=== PATIENT | female | born 1995 | race Two or more races ===

== ENCOUNTER 2016-07-19 22:40 | Emergency (ER) | payer SELFPAY ==
[~2016-07-19] VITALS: Ht 157.5 cm; Wt 45.4 kg
[2016-07-19 22:51] VITALS: BP 109/53
[2016-07-19] MEDS ORDERED: AMOX1TAB61 PO (23:14)
--- NOTE | 2016-07-19 23:15 | PHYS DOC ---
Past Medical History Past Medical History: No Pertinent History Past Surgical History: No Surgical History Additional Information: nonsmoker Alcohol Use: None Drug Use: None Adult General Chief Complaint Chief Complaint: ANIMAL BITE HPI HPI Patient is a 21 year old female who presents with dog bite to the left upper lip at 2200 tonight. The dog belongs to the patient's brother. The patient was bending down to give the dog a kiss and did not realize that the dog was eating at the time. The dog bit her. Her tetanus immunization is not up to date. She does not have a PCP. Review of Systems Review of Systems Constitutional: Denies fever or chills. [] Eyes: Denies change in visual acuity, redness, or eye pain. [] Musculoskeletal: Denies back pain or joint pain. [] Integument: Denies rash or skin lesions. Reports left upper lip laceration. Neurologic: Denies headache, focal weakness or sensory changes. [] Current Medications Current Medications Current Medications Medications (Trade) Dose Ordered Sig/Leticia Start Time Stop Time Status Last Admin Dose Admin Diphtheria/ Tetanus/Acell Pertussis (Boostrix) 0.5 ml ONCE ONCE 07/19/16 23:30 07/19/16 23:31 DC 07/19/16 23:30 0.5 ML Lidocaine/ Epinephrine (Xylocaine 1%-Epi 1:100,000) 20 ml 1X ONCE 07/19/16 23:30 07/19/16 23:31 DC 07/19/16 23:28 20 ML Allergies Allergies Allergies Coded Allergies Type Severity Reaction Last Updated Verified No Known Drug Allergies 07/19/16 No Physical Exam Physical Exam Constitutional: Well developed, well nourished, no acute distress, non-toxic appearance. [] HENT: Normocephalic, atraumatic, bilateral external ears normal, oropharynx moist, no oral exudates, nose normal. There is a 1cm laceration of the left upper lip through the jazmin border. It does not go [id number] the lip. Eyes: PERRLA, EOMI, conjunctiva normal, no discharge. [] Skin: Warm, dry, no erythema, no rash. There is a 1cm laceration of the left upper lip. Neurologic: Alert and oriented X 3, normal motor function, normal sensory function, no focal deficits noted. [] Psychologic: Affect normal, judgement normal, mood normal. [] Current Patient Data Vital Signs Vital Signs Date Time Temp Pulse Resp B/P Pulse Ox O2 Delivery O2 Flow Rate FiO2 07/19/16 22:51 99.0 83 18 98 Room Air 99.0 EKG EKG [] Radiology/Procedures Radiology/Procedures [] Course & Med Decision Making Course & Med Decision Making Pertinent Labs and Imaging studies reviewed. (See chart for details) Patient presents with a 1 cm laceration to the left upper lip. The wound was anesthetized with 1% lidocaine with epinephrine. The wound was explored for foreign bodies and none were identified. The wound was cleaned using chlorhexidine scrub and copiously irrigated using normal saline. Wound edges were well approximated using 2 simple interrupted sutures using 6-0 nylon. There was good alignment of the jazmin border. The patient tolerated the procedure well and bleeding was controlled. Dragon Disclaimer Dragon Disclaimer This electronic medical record was generated, in whole or in part, using a voice recognition dictation system. Departure Departure Impression: Primary Impression: Dog bite of vermilion of upper lip Disposition: 01 HOME, SELF-CARE Condition: STABLE Referrals: NO PCP (PCP) Patient Instructions: Animal Bite, [id number], Facial Laceration, Easy-to- Read, Sutured Wound Care, [id number] Additional Instructions: Your wound was close with nonabsorbable sutures. The sutures may get wet but please do not submerge the wound in water. Please clean the wound with soap and water only. Do no use peroxide or rubbing alcohol. Please complete all of the prescribed antibiotics. Please follow up with a primary care provider in 5 days to have your sutures removed. Return to the emergency department if you have increased redness, swelling, or yellow/green drainage from the wound, as these are signs of infection. Scripts Amoxicillin/Potassium Clav (Augmentin 875-125 Tablet)1 Each Tablet1 Tab PO BID # 14 TAB Prov:CHUCK DALLAS 07/19/16 Problem Qualifiers Primary Impression: Dog bite of vermilion of upper lip Encounter type: initial encounter Qualified Code: S01.551A - Open bite of lip, initial encounter CHUCK DALLAS Jul 19, 2016 23:14
[2016-07-19] MEDS ORDERED: LIDOCAINE 1%/EPI 1:100,000 20 ML VIAL. IJ ONE (23:30)
[2016-07-19] MEDS ORDERED: DIPHTH,PERTUSS(ACELL),TET TOX 0.5 ML DISP.SYRIN. VAX IM ONE (23:30)
== END 2016-07-20 00:20 | disposition home or self-care (01) ==
LOC: ER 22:40
DX: S01.551A Open bite of lip, initial encounter (principal); W54.0XXA Bitten by dog, initial encounter; Y93.89 Activity, other specified; Y99.8 Other external cause status; Y92.89 Other specified places as the place of occurrence of the external cause
CPT/HCPCS: 12011; 90471; 90715; 99283; J3490

== ENCOUNTER 2016-07-27 18:29 | Emergency (ER) | payer SELFPAY ==
[~2016-07-27 18:29] MED LIST: AMOX1TAB61 PO
[2016-07-27 18:35] VITALS: BP 93/54
--- NOTE | 2016-07-27 18:51 | PHYS DOC ---
Past Medical History Past Medical History: No Pertinent History Past Surgical History: No Surgical History Alcohol Use: None Drug Use: None Adult General Chief Complaint Chief Complaint: SUTURE/STAPLE REMOVAL [facility] HPI Patient is a 21 year old female presents emergency department to have 2 sutures removed. She states that they were placed on 07/19. She denies any drainage discharge or any redness coming from the site. She states that they have been a little irritated due to the fact of whether located at. Patient denies any fever, chills or any nausea vomiting. Review of Systems Review of Systems Constitutional: Denies fever or chills [] Eyes: Denies change in visual acuity, redness, or eye pain [] HENT: Denies nasal congestion or sore throat [] Respiratory: Denies cough or shortness of breath [] Cardiovascular: No additional information not addressed in HPI [] GI: Denies abdominal pain, nausea, vomiting, bloody stools or diarrhea [] : Denies dysuria or hematuria [] Musculoskeletal: Denies back pain or joint pain [] Integument: Denies rash or skin lesion. She presents for suture removal to the left upper lip Neurologic: Denies headache, focal weakness or sensory changes [] Allergies Allergies Allergies Coded Allergies Type Severity Reaction Last Updated Verified No Known Drug Allergies 07/19/16 No Physical Exam Physical Exam Constitutional: Well developed, well nourished, no acute distress, non-toxic appearance. [] HENT: Normocephalic, atraumatic, bilateral external ears normal, oropharynx moist, no oral exudates, nose normal. [] Eyes: PERRLA, EOMI, conjunctiva normal, no discharge. [] Neck: Normal range of motion, no tenderness, supple, no stridor. [] Cardiovascular:Heart rate regular rhythm Lungs & Thorax: No respiratory distress noted Skin: Warm, dry, no erythema, no rash. Sutures noted in the left upper lip the area no redness drainage or discharge noted sutures appear to be intact. Back: No tenderness Extremities: No tenderness, no cyanosis, no clubbing, ROM intact, no edema. [] Neurologic: Alert and oriented X 3, normal motor function, normal sensory function, no focal deficits noted. [] Psychologic: Affect normal, judgement normal, mood normal. [] Current Patient Data Vital Signs Vital Signs Date Time Temp Pulse Resp B/P Pulse Ox O2 Delivery O2 Flow Rate FiO2 07/27/16 18:35 98.3 80 16 99 Room Air 98.3 EKG EKG [] Radiology/Procedures Radiology/Procedures [] Course & Med Decision Making Course & Med Decision Making Pertinent Labs and Imaging studies reviewed. (See chart for details) 2 sutures removed from the left upper lip the area no drainage or discharge noted from the site. Patient was provided with signs and symptoms of infection: Redness, warmth, tenderness or any yellow/greenish drainage of a come from the site. Patient was instructed to keep the area clean and dry. Patient was provided with signs and symptoms to return back to emergency department. Patient agrees with discharge instructions treatment regimens and follow-up recommendations. [] Dragon Disclaimer Dragon Disclaimer This electronic medical record was generated, in whole or in part, using a voice recognition dictation system. Departure Departure Impression: Primary Impression: Visit for suture removal Disposition: HOME, SELF-CARE Condition: STABLE Referrals: NO PCP (PCP) Patient Instructions: Suture Removal-Brief Additional Instructions: Continue to keep the area clean and dry. Watch for signs and symptoms of infection redness, warmth, tenderness or any yellow/greenish drainage of a come from the site if this should occur follow-up to primary care physician immediately. Follow-up with her primary care physician as needed. Return back to emergency department signs and symptoms of become worse. J[place] INFANTE APRN Jul 27, 2016 18:51
== END 2016-07-27 18:59 | disposition home or self-care (01) ==
LOC: ER 18:29
DX: S01.511D Laceration without foreign body of lip, subsequent encounter (principal); X58.XXXD Exposure to other specified factors, subsequent encounter; Y99.8 Other external cause status; Y92.89 Other specified places as the place of occurrence of the external cause
CPT/HCPCS: 99281